=== PATIENT | female | born 1945 | race Caucasian/White ===

== ENCOUNTER 2018-04-27 11:42 | Observation (INO) | END 2018-04-28 10:40 | disposition home or self-care (01) ==

== ENCOUNTER 2019-01-11 08:31 | Day surgery (SDC) | payer MEDICARE, OTHER ==
[2019-01-11] VITALS (34 sets, daily range): BP systolic 89–181; BP diastolic 44–96; PULSE 60–83; RESP 9–19; Ht 157.5 cm; Wt 72.7 kg
[~2019-01-11] VITALS: Ht 157.5 cm; Wt 72.7 kg
[~2019-01-11 08:31] MED LIST: CARV12.579 PO; CLOP75TA27 PO; ERGO500013 PO; GLIP10TA14 PO; LISI-471 PO; METF100010 PO; PIOG30TA12 PO; RANI150T5 PO; ROSU40TA35 PO; SITA100T11 PO
[2019-01-11] MEDS ORDERED: PIOG30TA12 PO (09:11)
[2019-01-11] MEDS ORDERED: ASPI-903 PO (09:11)
[2019-01-11] MEDS ORDERED: CARV12.598 PO (09:11)
[2019-01-11] MEDS ORDERED: LISI-471 PO (09:11)
[2019-01-11] MEDS ORDERED: CLOP75TA27 PO (09:11)
[2019-01-11] MEDS ORDERED: BIOT1CAP3 PO (09:11)
[2019-01-11] MEDS ORDERED: FER325 PO (09:11)
[2019-01-11] MEDS ORDERED: MIDAZOLAM 1 MG/ML 2 ML INJ ONE (10:21)
[2019-01-11] MEDS ORDERED: FENTAnyl 50 MCG/ML VIAL ONE (10:21)
[2019-01-11] MEDS ORDERED: LIDOCAINE 1% (MDV) 20 ML INJ ONE (10:21)
[2019-01-11] MEDS ORDERED: BIVALIRUDIN 250MG /NS 50 ML 50 ML IVPB ONE (11:21)
[2019-01-11] MEDS ORDERED: NITROGLYCERIN (IC) 100 MCG/ML INJ ONE (11:21)
[2019-01-11] MEDS ORDERED: IODIXANOL LOCM 100 ML BTL ONE (11:21)
[2019-01-11] MEDS ORDERED: IOHEXOL 350MG/ML 50 ML BTL ONE (11:21)
[2019-01-11] MEDS ORDERED: CLOPIDOGREL 300 MG TAB ONE (11:35)
[2019-01-11] MEDS ORDERED: SOD CHLORIDE 0.9% 1,000 ML IV SCH (11:42)
--- NOTE | 2019-01-11 11:53 | OPR ---
Date/Time of Note Date/Time of Note DATE: 01/11/19 TIME: 11:48 Operative Report Procedure Date: Jan 11, 2019 Preoperative Diagnosis Angina abnormal stress test Postoperative Diagnosis Same Operation/Procedure Performed PCI PDA Surgeon see signature line Sql Etl Developer sanjay Anesthesia Type: moderate sedation Estimated Blood Loss: minimal Transfusion none Specimen none Grafts/Implants none Complications none Procedure Description Correctional Officer Sergeant: Saran Anguiano MD Indication: This is a pleasant 73-year-old female with history of coronary artery disease status post CT peripheral vascular disease status post coronary artery bypass graft the use of EWING and STACY Procure performed: #1 left heart catheterization and selective right and left coronary angiogram #2 Right femoral angiogram 3. Selective EWING and nonselective STACY angiography 3. Successful PTCA and stenting of posterior descending artery using a 2.25 x 38 mm Synergy drug-eluting stent 4. Moderate sedation for more than 60 minutes Findings: 1. Left main: Is short with about 10% distal stenosis. 2. LAD: has 100 % proximately. EWING to LAD appeared to be patent 3. Left circumflex artery: is nondominant. it has 50 % stenosis at the ostium of the OM1. Left circumflex itself has been stented which is widely patent. Distally becomes small 4. RCA: is dominant. it has 40 % stenosis proximally. Mid stent is widely patent. PDA has 99% stenosis.*PCI no significant residual stenosis left at the site of stent 5, ramus intermediate is moderate to small size vessel. Proximal stent is widely patent 6. EWING to LAD is patent 7. Nonselective angiogram of the right internal mammary artery showed there is appear to be closed 8. LVEDP is 7 with no significant gradient across aortic valve Procedure in detail: Written informed consent with obtained after risks benefits and alternatives discussed with the patient in detail. risks including but not limited to risk of infection vascular complications, bleeding complications, CT stroke arrhythmia renal failure at even were discussed with the patient in de tail. Patient was brought into the cardiac labor employment associate and placed in supine position. Right and left groin area was prepped and draped in regular sterile fashion and then he was in anesthetized using 1% lidocaine. Right femoral artery was cannulated and using modified seldinger technique a 6 Ukrainian sheath was placed in the femoral artery. Femoral angiogram was performed JL4 guiding catheter was advanced to engage the left main coronary artery angiographic view was obtained. JR4 catheter was advanced and engaged into the right coronary artery and angiographic view was obtained. JR4 catheter was used and with great difficulty was able to engage into the left and right internal mammary artery angiographic view was obtained. The graft could be found At this time we decided to perform PCI of the posterior and descending artery. A 8.75 guiding head was advanced to engage the right coronary artery. BMW wire was used and advanced across the lesion and placed distal to the lesion. I used a 2 x 15 mm balloon which was placed across the lesion and predilated the vessel. Then I used a 2.25 x 30 mm Synergy drug-eluting stent which was placed across the lesion and deployed at 12 [place]. Final angiographic view was obtained which showed GEOVANI-3 flow no evidence of dissection and no significant residual stenosis at the site of the stent. Then a pigtail was advanced to engage the left ventricle hemodynamics as recorded by pullback aortic pressure was measured. Patient tolerated the procedure well with no complication. Patient was transferred to ICU in stable condition. contrast used: 110 Visipaque Conclusions: Successful PTCA stenting of the anterior descending artery from 99 per stenosis to no significant residual stenosis using a 2.25 x 30 mm Synergy drug-eluting stent. Recommendations: Aggressive medical therapy. aspirin indefinitely dual antiplatlet therapy with aspirin and Plavix SARAN ANGUIANO MD [facility] SARAN ANGUIANO MD Jan 11, 2019 11:53
[2019-01-11] MEDS ORDERED: OXYCODONE/ACETAMINOPHEN (5/325) TAB PO PRN ×2 (12:00)
[2019-01-11] MEDS ORDERED: ACETAMINOPHEN 325 MG TAB PO PRN (12:00)
[2019-01-11] MEDS ORDERED: AL HYDROX/MG HYDROX/SIMETH 30 ML CUP PO PRN (12:00)
[2019-01-11] MEDS ORDERED: morphine 2 MG INJ IV PRN (12:00)
[2019-01-11] MEDS ORDERED: ONDANSETRON 4 MG INJ IV PRN (12:00)
[2019-01-11] MEDS ORDERED: GLUCOSE GEL 15 GRAM TUBE PO PRN ×2 (12:30)
[2019-01-11] MEDS ORDERED: GLUCOSE GEL 15 GRAM TUBE BUCCAL PRN (12:30)
[2019-01-11] MEDS ORDERED: GLUCAGON 1 MG INJ IM PRN (12:30)
[2019-01-11] MEDS ORDERED: DEXTROSE 50% 50 ML SYRINGE IV PRN ×2 (12:30)
[2019-01-11] MEDS ORDERED: ATROPINE 1 MG/10 ML SYRINGE ONE (14:16)
[2019-01-11] MEDS: INSULIN ASPART [NOVOLOG] 3 ML PEN SC SCH ×3 (15:30→21:50)
--- NOTE | 2019-01-11 17:58 | RADRPT ---
Vent Rate: 62 bpm RR Interval: 0 msec DE Interval: 172 msec QRS Duration: 92 msec QT Interval: 416 msec QTC Interval: 422 msec P-R-T [place]: 73 - -31 - 0 degrees Sinus rhythm with occasional premature ventricular complexes Left axis deviation Anteroseptal infarct , age undetermined Abnormal ECG Electronically Signed By: Patricio Hernandez
--- NOTE | 2019-01-11 20:57 | HP ---
DATE OF ADMISSION: 01/11/2019 CHIEF COMPLAINT: Coronary artery disease. HISTORY OF PRESENT ILLNESS: This is a 73-year-old female with a past medical history of coronary art tenisha disease, a history of peripheral vascular disease who presents to [facility] to undergo elective catheterization. The patient was noted to have abnormal stress test and anginal ch est symptoms in an outside setting. As a result, the patient came to the hospital and underwent a le ft heart cardiac catheterization. The patient had a PCI stenting of the anterior descending artery w ith a drug-eluting stent. After the procedure, the patient was admitted to the intensive care unit f or observation. Upon my evaluation, the patient at this time is currently stable. Denies any fevers, chills, nausea, vomiting. PAST MEDICAL HISTORY: History of diabetes, history of coronary artery disease, history of hypertensi on, history of dyslipidemia, and history of CKD. PAST SURGICAL HISTORY: Status post CABG, status post cardiac catheterization. FAMILY HISTORY: No family history of kidney disease. SOCIAL HISTORY: Does not drink, smoke, do drugs. MEDICATIONS: The patient's medications have been reviewed. ALLERGIES: Have been reviewed. REVIEW OF SYSTEMS: A 14-point review of systems is conducted. Pertinent positives stated in HPI, ot herwise, negative. PHYSICAL EXAMINATION: VITAL SIGNS: Blood pressure is 112/54, respirations 15, pulse 66, temperature 98.6. HEENT: Head is normocephalic. NECK: Supple. HEART: Regular rate. LUNGS: Show diminished breath sounds at the base. ABDOMEN: Soft, nontender to palpation. No rebound or guarding. EXTREMITIES: Negative for clubbing, cyanosis. No edema. DERMATOLOGIC: No rashes. MUSCULOSKELETAL: No joint effusion. NEUROLOGIC: No focal deficits. LABORATORY DATA: Has been reviewed. ASSESSMENT AND PLAN: 1. Coronary artery disease. The patient is status post cardiac catheterization with PCI with a drug -eluting stent to the anterior descending artery. Plan is to monitor the patient in intensive care u nit. Continue medical management. 2. Chronic kidney disease stage III with a baseline creatinine around 1.1 ____. The patient's renal function is currently at baseline. Continue gentle IV hydration and monitor for any signs of contra st-associated nephropathy. 3. Diabetes. Continue Accu-Cheks and sliding scale. 4. Coronary artery disease with a history of coronary artery bypass graft. Continue medical managem ent. 5. Ischemic statin therapy. 6. Hypertension. Continue current blood pressure regimen. 7. History of peripheral vascular disease. Continue current medical management. 8. Gastrointestinal and deep venous thrombosis prophylaxis. Please note I spent an additional 30 minutes of [id number] time with this patient discussing advanc e directives and code status. The patient is FULL CODE. Dictated By: SIRI AGUIRRE DO NR/RAIZA Conf#: [id number] DID#: [id number]
[2019-01-11] MEDS ORDERED: RANITIDINE 150 MG TAB PO SCH (21:00)
[2019-01-11] MEDS ORDERED: ROSUVASTATIN CALCIUM 40 MG TABLET PO SCH (21:00)
[2019-01-11] MEDS ORDERED: glipiZIDE 10 MG TAB PO SCH (21:00)
[2019-01-11] MEDS: FERROUS SULFATE (EC) 325 MG TAB PO SCH (21:46)
[2019-01-12] VITALS (12 sets, daily range): BP systolic 84–151; BP diastolic 38–90; PULSE 57–75; RESP 11–23
[2019-01-12] MEDS ORDERED: ACCU-CHEK XX SCH (02:00)
--- NOTE | 2019-01-12 07:39 | CONS ---
Consult Date/Type/Reason Admit Date/Time Initial Consult Date Type of Consultation: cv Date/Time of Note DATE: 01/12/19 TIME: 07:36 Subjective cv f/u S; Discussed with the staff and telemetry was reviewed patient remained in sinus rhythm no chest pain no palpitation no groin pain Objective: General: no acute distress HEENT: NC/AT. pupils are equal. round. NECK: NO JVD. no stridor. CV: RRR. systolic murmur; no gallop or rubs. PULM: no wheezing or rhonchi. GI: SOFT, NT, ND, no rebound or guarding Extremity: trace B/L LE edema. no clubbing. neuro: awake and alert, OX3. Psych: calm and pleasant rectal: deferred Vascular: Right femoral no bleeding no hematoma no bruit Objective Vitals Vital Signs Date Temp Pulse Resp B/P (MAP) Pulse Ox O2 O2 Flow FiO2 Time Delivery Rate 01/12/19 74 23 133/56 97 06:00 (81) 01/12/19 Room Air 05:00 01/12/19 98.2 00:00 Intake and Output 01/11/19 01/11/19 01/12/19 1515:00 23:00 07:00 IntakeIntake Total 665 ml 910 ml 175 ml OutputOutput Total 350 ml BalanceBalance 315 ml 910 ml 175 ml Results/Medications Result Diagram: 01/12/19 0449 01/12/19 0449 Results 24 hrs Laboratory Tests Test 01/11/19 09:05 01/11/19 09:27 01/11/19 12:33 01/11/19 15:27 White Blood Count 6.5 Red Blood Count 4.57 Hemoglobin 11.1 L Hematocrit 36.3 L Mean Corpuscular Volume 79.4 L Mean Corpuscular 24.3 L Hemoglobin Mean Corpuscular 30.6 L Hemoglobin Concent Red Cell Distribution 15.9 H Width Platelet Count 204 # Mean Platelet Volume 10.0 Immature Granulocytes % 0.300 Neutrophils % 59.7 Lymphocytes % 26.8 Monocytes % 9.6 Eosinophils % 2.8 Basophils % 0.8 Nucleated Red Blood 0.0 Cells % Immature Granulocytes # 0.020 Neutrophils # 3.9 Lymphocytes # 1.8 Monocytes # 0.6 Eosinophils # 0.2 Basophils # 0.1 Nucleated Red Blood 0.0 Cells # Prothrombin Time 12.7 Prothrombin Time Ratio 1.0 INR International 0.94 Normalized Ratio Activated 32.3 Partial Thromboplast Time Sodium Level 141 Potassium Level 4.4 Chloride Level 101 Carbon Dioxide Level 28 Anion Gap 12 Blood Urea Nitrogen 22 H Creatinine 1.11 H Est Glomerular Filtrat Rate mL/min Glucose Level 170 Hemoglobin A1c 9.3 H Calcium Level 10.3 H Total Bilirubin 0.2 Direct Bilirubin 0.00 Indirect Bilirubin 0.2 Aspartate Amino 23 Transf (AST/SGOT) Alanine 9 L Aminotransferase (ALT/S GPT) Alkaline Phosphatase 66 Creatine Kinase 84 Creatine Kinase Index 0.8 Creatinine Kinase MB 0.65 (Mass) Troponin I < 0.012 Total Protein 8.7 H Albumin 4.7 Globulin 4.00 H Albumin/Globulin Ratio 1.17 Triglycerides Level 200 H Cholesterol Level 151 LDL Cholesterol, 58 Calculated HDL Cholesterol 53 Cholesterol/HDL Ratio 2.8 Bedside Glucose 180 187 146 Test 01/11/19 17:22 01/11/19 21:46 01/12/19 04:49 Bedside Glucose 126 205 White Blood Count 6.4 Red Blood Count 3.85 L Hemoglobin 9.7 L Hematocrit 31.1 L Mean Corpuscular Volume 80.8 L Mean Corpuscular 25.2 L Hemoglobin Mean Corpuscular 31.2 L Hemoglobin Concent Red Cell Distribution 15.8 H Width Platelet Count 176 Mean Platelet Volume 10.1 Immature Granulocytes % 0.300 Neutrophils % 60.6 Lymphocytes % 25.2 Monocytes % 10.9 Eosinophils % 2.5 Basophils % 0.5 Nucleated Red Blood 0.0 Cells % Immature Granulocytes # 0.020 Neutrophils # 3.9 Lymphocytes # 1.6 Monocytes # 0.7 Eosinophils # 0.2 Basophils # 0.0 Nucleated Red Blood 0.0 Cells # Sodium Level 141 Potassium Level 4.4 Chloride Level 109 Carbon Dioxide Level 27 Anion Gap 5 Blood Urea Nitrogen 26 H Creatinine 1.00 Est Glomerular Filtrat Rate mL/min Glucose Level 177 Calcium Level 9.5 Triglycerides Level 172 H Cholesterol Level 110 LDL Cholesterol, 37 Calculated HDL Cholesterol 39 # Cholesterol/HDL Ratio 2.8 Home Meds Reported Medications Biotin (BIOTIN) 1 Mg Capsule, 1 MG PO DAILY, CAP 01/11/19 Aspirin* (Aspirin* Chew) 81 Mg Tab.chew, 81 MG PO DAILY, TAB.CHEW 01/11/19 Pioglitazone Hcl* (Actos*) 30 Mg Tablet, 30 MG PO DAILY, #30 TAB 01/11/19 Ferrous Sulfate* (Ferrous Sulfate*) 325 Mg Tabec, 325 MG PO BID, TAB 01/11/19 Clopidogrel Bisulfate (Clopidogrel) 75 Mg Tablet, 75 MG PO DAILY, #30 TAB 01/11/19 Lisinopril* (Lisinopril*) 20 Mg Tablet, 20 MG PO DAILY, #30 TAB 01/11/19 Carvedilol* (Coreg*) 12.5 Mg Tablet, 12.5 MG PO BID, #60 TAB 01/11/19 Ergocalciferol (Vitamin D2) (VITAMIN D2) 50,000 Unit Capsule, 05285 UNIT PO EVERY THURSDAY, CAP 04/27/18 Rosuvastatin Calcium* (Crestor*) 40 Mg Tablet, 40 MG PO QHS, #30 TAB 04/27/18 Sitagliptin* (Januvia*) 100 Mg Tablet, 100 MG PO DAILY, #30 TAB 04/27/18 Glipizide* (Glipizide*) 10 Mg Tablet, 10 MG PO BID, TAB 04/27/18 Ranitidine Hcl* (Ranitidine Hcl*) 150 Mg Tablet, 150 MG PO HS, #30 TAB 04/27/18 Metformin Hcl* (Metformin Hcl*) 1,000 Mg Tablet, 1000 MG PO WITH BREAKFAST DINNE, #60 TAB 04/27/18 Discontinued Reported Medications Pioglitazone Hcl* (Actos*) 30 Mg Tablet, 30 MG PO DAILY, #30 TAB 04/27/18 Carvedilol* (Carvedilol*) 12.5 Mg Tablet, 12.5 MG PO BID, #60 TAB 04/27/18 Lisinopril* (Lisinopril*) 20 Mg Tablet, 20 MG PO DAILY, #30 TAB 04/27/18 Clopidogrel Bisulfate (Clopidogrel) 75 Mg Tablet, 75 MG PO DAILY, #30 TAB 04/27/18 Medications Current Medications Aspirin (Halfprin) 81 mg DAILY PO ; Start 01/12/19 at 09:00 Clopidogrel Bisulfate (plaVIX) 75 mg DAILY PO ; Start 01/12/19 at 09:00 Acetaminophen (Tylenol Tab) 650 mg Q4H PRN PO PAIN; Start 01/11/19 at 12:00 Oxycodone/ Acetaminophen (Percocet (5/ 325)) 1 tab Q4H PRN PO PAIN; Start 01/11/19 at 12:00 Oxycodone/ Acetaminophen (Percocet (5/ 325)) 2 tab Q4H PRN PO PAIN; Start 01/11/19 at 12:00 Morphine Sulfate (morphine) 1 mg Q1H PRN IV PAIN; Start 01/11/19 at 12:00 Al Hydrox/Mg Hydrox/Simethicone (Mag-Al Plus) 30 ml Q4H PRN PO GASTROINTESTINAL UPSET; Start 01/11/19 at 12:00 Ondansetron HCl (Zofran Inj) 4 mg Q4H PRN IV NAUSEA AND/OR VOMITING; Start 01/11/19 at 12:00 Carvedilol (Coreg) 12.5 mg BID PO Last administered on 01/11/19at 21:46; Admin Dose 12.5 MG; Start 01/11/19 at 21:00 Ferrous Sulfate (Ferrous Sulfate (Ec)) 325 mg BID PO Last administered on 01/11/19at 21:46; Admin Dose 325 MG; Start 01/11/19 at 21:00 Lisinopril (Zestril) 20 mg DAILY PO ; Start 01/12/19 at 09:00 Pioglitazone HCl (Actos) 30 mg DAILY PO ; Start 01/12/19 at 09:00 Ranitidine HCl (Zantac) 150 mg HS PO Last administered on 01/11/19at 21:46; Admin Dose 150 MG; Start 01/11/19 at 21:00 Rosuvastatin Calcium (Crestor) 40 mg QHS PO ; Start 01/11/19 at 21:00 Diagnostic Test (Pha) (Accu-Chek) 1 ea 02 XX Last administered on 01/12/19at 02:00; Admin Dose 1 EA; Start 01/12/19 at 02:00 Insulin Aspart (Novolog Insulin Pen) NOVOLOG *MILD* ALGORITHM WITH MEALS BEDTIME SC Last administered on 01/11/19at 21:50; Admin Dose 1 UNIT; Start 01/11/19 at 12:00 Miscellaneous Information 1 ea NOTE XX ; Start 01/11/19 at 12:30 Glucose (Glutose) 15 gm Q15M PRN PO DECREASED GLUCOSE; Start 01/11/19 at 12:30 Glucose (Glutose) 22.5 gm Q15M PRN PO DECREASED GLUCOSE; Start 01/11/19 at 12:30 Dextrose (D50w Syringe) 25 ml Q15M PRN IV DECREASED GLUCOSE; Start 01/11/19 at 12:30 Dextrose (D50w Syringe) 50 ml Q15M PRN IV DECREASED GLUCOSE; Start 01/11/19 at 12:30 Glucagon (Glucagen) 1 mg Q15M PRN IM DECREASED GLUCOSE; Start 01/11/19 at 12:30 Glucose (Glutose) 15 gm Q15M PRN BUCCAL DECREASED GLUCOSE; Start 01/11/19 at 12:30 Assessment/Plan Hospital Course (Demo Recall) Coronary artery disease status post OK status post bypass surgery status post PCI Diabetes Hypertension Dyslipidemia Anemia Continue with the current cardiac care Hold metformin until tomorrow DC home today Outpatient follow-up with me in 1-2-week SARAN JEFFERSON MD [facility] SARAN JEFFERSON MD Jan 12, 2019 07:38
[2019-01-12] MEDS: INSULIN ASPART [NOVOLOG] 3 ML PEN SC SCH (07:50)
[2019-01-12] MEDS: FERROUS SULFATE (EC) 325 MG TAB PO SCH (08:14)
[2019-01-12] MEDS ORDERED: PIOGLITAZONE 30 MG TAB PO SCH (09:00)
[2019-01-12] MEDS ORDERED: LISINOPRIL 20 MG TAB PO SCH (09:00)
[2019-01-12] MEDS ORDERED: ASPIRIN (EC) 81 MG TAB PO SCH (09:00)
[2019-01-12] MEDS ORDERED: ASPIRIN 81 MG TAB PO SCH (09:00)
[2019-01-12] MEDS ORDERED: CLOPIDOGREL 75 MG TAB PO SCH ×2 (09:00)
--- NOTE | 2019-01-13 02:00 | DS ---
DATE OF ADMISSION: 01/11/2019 DATE OF DISCHARGE: 01/12/2019 HOSPITAL COURSE: This is a 73-year-old female with a past medical history of coronary artery disease , history of peripheral vascular disease, history of diabetes, hypertension who presented to [facility] to undergo elective cardiac catheterization. The patient was noted to have abno rmal stress test with anginal chest pain. As a result, she underwent cardiac catheterization and had a PCI and stenting of the descending artery with a drug-eluting stent. The patient after the proced ure was admitted to the intensive care unit where she was noted to be stable overnight without any ac [place] complications. There have been no reports of any hemoptysis, hematemesis or hematochezia. Currrubén ntly, the patient is stable and will be discharged home, where she will follow up with her primary ca re physician and material preparation worker in 1 weeks' time. FINAL DIAGNOSES: 1. Coronary artery disease with PCI to the left anterior descending. 2. Diabetes. 3. Hypertension. 4. History of coronary artery bypass graft. 5. Dyslipidemia. 6. History of peripheral vascular disease. 7. Chronic kidney disease, stage III, with baseline creatinine around 1.0 mg/dL. No evidence of con trast-associated nephropathy during this hospital course. 8. Anemia, likely dilutional. We will continue to monitor outpatient setting. No evidence of bleed ing. At the time of discharge, the patient is stable, in no acute distress. FINAL MEDICATIONS: See reconciliation list. Dictated By: SIRI DILLON/RAIZA Conf#: [id number] DID#: [id number]
== END 2019-01-12 11:43 | disposition home or self-care (01) ==
LOC: CCL 08:31 → SDS 08:31 → UNDOADMIN 14:11 → ICU 14:11 → CCL 14:11 → SDS 14:11 → ICU 18:04 → CCL 01-12 11:43
PROVIDERS: ATTEND Internal Medicine Interventional Cardiology
DX: I25.10 Atherosclerotic heart disease of native coronary artery without angina pectoris (principal); I73.9 Peripheral vascular disease, unspecified; E11.9 Type 2 diabetes mellitus without complications; I12.9 Hypertensive chronic kidney disease with stage 1 through stage 4 chronic kidney disease, or unspecified chronic kidney disease; N18.3 Chronic kidney disease, stage 3 (moderate); E78.5 Hyperlipidemia, unspecified; D64.9 Anemia, unspecified; Z79.84 Long term (current) use of oral hypoglycemic drugs
CPT/HCPCS: 80048; 80053; 80061; 82550; 82553; 82962; 83036; 84484; 85025; 85610; 85730; 87081; 93005; 93458; C1725; C1874; C1887; C1894; C9600; J0583; J1815; J2250; J3010; Q9967; J0461